=== PATIENT | male | born 1965 | race Caucasian/White ===

== ENCOUNTER 2021-10-09 13:01 | Emergency (ER) | payer OTHER, SELFPAY ==
--- NOTE | 2021-10-09 13:06 | ED.SKABFB ---
HPI - Skin/Abscess/Foreign Bdy General Chief complaint: Skin/Abscess/Foreign Body Stated complaint: rash Time Seen by Provider: 10/09/21 13:24 Source: patient Mode of arrival: ambulatory Limitations: no limitations History of Present Illness HPI narrative: Mr. Lara is a 55-year-old male patient presenting to the clinic today with complaints of rash on his hands, arms, legs, and torso x1 to 2 weeks. He reports that he has had a history of lichens planus in the past and is unsure if that is what is going on. He reports the rash is itchy and tingly Related Data Home Medications Medication Instructions Recorded Confirmed hydrochlorothiazide 25 mg tablet 25 mg PO DAILY 10/09/21 10/09/21 losartan 50 mg tablet 50 mg PO DAILY 10/09/21 10/09/21 Allergies Allergy/AdvReac Type Severity Reaction Status Date / Time codeine AdvReac Hallucinati Verified 10/09/21 13:22 ng Review of Systems Review of Systems: Pertinent positives per HPI. Patient denies any fever, chills, headache, visual changes, dizziness, cough, runny nose, sore throat, shortness of breath, chest pain, palpitations, nausea, vomiting, diarrhea, constipation, abdominal pain, or any urinary issues. PMFSH Social History Social History Smoking status: Never smoker Alcohol intake: never Gender identity (if verbalized by the patient): Male Comments At the time of my signature, I reviewed and agree with the nursing past medical, surgical, social, and family history. There is no relevant family history pertinent to the patient complaint. Exam Narrative: General: Well-developed, well nourished, in no apparent distress Head: Normocephalic, atraumatic. Cardio: Regular rate and rhythm, s1 and s2 normal, no murmur appreciated. Resp: Clear to auscultation bilaterally, no rhonchi, rales, wheezing or rubs. Integumentary: [place], warm, and dry, intact without lesion, blotchy rashes to the palm of his hands with red, raised blisterlike lesions to the forearms and chest suspicious for dermatitis. Course Course Emergency Course: Portions of this record may have been created with voice recognition software. Level of Care: Express Care Visit Vital Signs Vital signs: Vital signs reviewed MDM - Skin/Abscess/Foreign Bdy MDM Narrative Medical decision making narrative: At the time of visit patient is resting comfortably on the exam table. I suspect that the patient has lichens planus as well as dermatitis. I will give him a prescription for some Vistaril and some prednisone to treat his symptoms. Supportive measures were discussed with the patient he voiced understanding of discharge instructions and agrees to the treatment plan. Differential Diagnosis Differential diagnosis: Likely abscess of skin or subcutaneous tissue, dermatophytosis, cellulitis, eczema, insect bites and contact dermatitis Discharge Plan Discharge Clinical Impression: Lichen planus, Dermatitis Patient Disposition: Home, Self-Care Condition: Stable Instructions: Antibiotic Form, Acute Rash (ED), Dermatitis (ED) Additional Instructions: Avoid scratching Avoid taking hot showers May take Vistaril and prednisone as prescribed If symptoms persist in 3 to 4 days follow-up with your PCP as you may need referral to dermatology Prescriptions: New prednisone 20 mg tablet 40 mg PO DAILY 5 Days Qty: 10 0RF hydroxyzine pamoate [Vistaril] 25 mg capsule 25 mg PO Q6H PRN (Reason: itching) 7 Days Qty: 28 1RF No Action losartan 50 mg tablet 50 mg PO DAILY hydrochlorothiazide 25 mg tablet 25 mg PO DAILY Follow-up/Referrals: UNKNOWN,DOCTOR [Primary Care Provider] - Time of Disposition: 13:25 Quality NIHSS Nursing Documentation ED NIHSS nursing documentation: reviewed/agree
[2021-10-09 13:20] VITALS: BP 180/107; PULSE 75; RESP 18; TEMP 36.6; O2SAT 100
== END 2021-10-09 13:40 | disposition home or self-care (01) ==
PROVIDERS: Emergency Provider Nurse Practitioner Family
DX: L43.9 Lichen planus, unspecified (principal); L30.9 Dermatitis, unspecified; I10 Essential (primary) hypertension
CPT/HCPCS: 99213; G0463

== ENCOUNTER 2024-03-17 16:02 | Emergency (ER) | payer OTHER, SELFPAY ==
[2024-03-17 16:21] VITALS: BP 178/94; PULSE 86; RESP 16; TEMP 36.8; O2SAT 99
[2024-03-17 16:32] LABS: EDUAAPPEAR Clear; EDUABILI Negative (Negative); EDUABLOOD Negative (Negative); EDUACOLOR1 Yellow; EDUAGLUCOSE Negative (Negative); EDUAKETONE Negative (Negative); EDUALEUKO Trace (Negative); EDUANITRATE Negative (Negative); EDUAPROTEIN Negative (Negative); EDUAUROBILI 0.2
--- NOTE | 2024-03-17 16:51 | ED.MALEGU ---
HPI - Male Genitourinary General Chief complaint: Urogenital-Male Stated complaint: UTI Time Seen by Provider: 03/17/24 16:42 Source: patient and RN notes reviewed Mode of arrival: ambulatory Limitations: no limitations History of Present Illness HPI Narrative: Patient presents today complaining left-sided scrotal pain, bladder fullness, and occasional dysuria x1 month. He complains of increased scrotal pain with standing, but at rest he rates it 4-5/10. In June of 2023 he had very similar symptoms and was diagnosed with a hydrocele and scrotal nodule by Urology. At that time he opted not to have surgery and was treated with a course of Bactrim and tramadol for pain. Since that time, his urologist has . He has an appointment with a new urologist in 10 days and that office has instructed him to be evaluated for possible UTI. He denies any additional symptoms to include nausea or vomiting, fever, back pain. Related Data Home Medications ?Medication ?Instructions ?Recorded ?Confirmed ?Last Taken ?Type hydrochlorothiazide 25 mg tablet 25 mg PO DAILY 10/09/21 10/09/21 Unknown History chlorthalidone 25 mg tablet mg 03/17/24 Unknown History Allergies Allergy/AdvReac Type Severity Reaction Status Date / Time codeine AdvReac Hallucinati Verified 03/17/24 16:22 ng Review of Systems Review of Systems: CONSTITUTIONAL: Denies body aches, fever, chills, or sweats. EYES: Denies visual changes, redness, or discharge. ENT: Denies rhinorrhea, congestion, sore throat, or otalgia. CARDIOVASCULAR: Denies chest pain, palpitations, or edema. RESPIRATORY: Denies cough or dyspnea. GASTROINTESTINAL: Denies abdominal pain, nausea, vomiting, or diarrhea. GENITOURINARY: Bladder fullness, occasional dysuria, left scrotal pain SKIN: Denies rash, itching, or wounds. MUSCULOSKELETAL: Denies back pain, joint pain, or myalgia. NEUROLOGIC: Denies headache, numbness, tingling, or weakness. PSYCH: Denies depression or anxiety. [facility] Social History Social History Smoking status: Never smoker Alcohol intake: never Gender identity (if verbalized by the patient): Male Comments At time of signature, I have reviewed and agree with nursing past medical, surgical, social and family history unless otherwise noted. Please see nursing chart for further information. There is no relevant family history pertinent to the presenting complaint Exam Narrative: GENERAL: Well-appearing, well-nourished, and in no acute distress. HEAD: Normocephalic, atraumatic. EYES: EOMI. No redness or drainage. Conjunctivae normal. ENT: Mucous membranes pink and moist. NECK: Normal AROM. CHEST: No respiratory distress. : Exam deferred EXTREMITIES: Normal range of motion. No edema. SKIN: Warm, dry, no rash. Capillary refill normal. Normal skin turgor. NEURO: No focal deficits. Alert and oriented x3. Gait steady. PSYCH: Normal affect. No signs of depression or anxiety. Course Course Level of Care: Express Care Visit Vital Signs Vital signs: Vital Signs Temperature 98.3 F 03/17/24 16:21 Pulse Rate 86 03/17/24 16:21 Respiratory Rate 16 03/17/24 16:21 Blood Pressure 178/94 H 03/17/24 16:21 Pulse Oximetry 99 03/17/24 16:21 Temperature 98.3 F 03/17/24 16:21 Pulse Rate 86 03/17/24 16:21 Respiratory Rate 16 03/17/24 16:21 Blood Pressure 178/94 H 03/17/24 16:21 Pulse Oximetry 99 03/17/24 16:21 Reviewed MDM - Male Genitourinary MDM Narrative Medical decision making narrative: Patient's urinalysis is not consistent with infection today. Since patient's symptoms are consistent with his previous hydrocele/nodule symptoms, will treat him with some Bactrim and tramadol as his previous serologies has done, while he is waiting on an appointment with his new urologist. Differential Diagnosis Differential diagnosis: Likely urinary tract infection, epididymitis and other (Hydrocele) Lab Data Attestation: I reviewed the patient's lab results. Labs: Lab Results 03/17/24 Range/Units 16:28 POC Urine Color Yellow POC Urine Clarity Clear POC Urine pH 7.0 POC Ur Specif [place] 1.020 POC Urine Protein Negative (Negative) POC Ur Glucose (UA) Negative (Negative) POC Urine Ketones Negative (Negative) POC Urine Blood Negative (Negative) POC Urine Nitrite Negative (Negative) POC Urine Bilirubin Negative (Negative) POC Urine Urobilinogen 0.2 POC U Leukocyte Esteras Trace (Negative) Critical Care Time Critical Care Time Critical Care Time: No Discharge Plan Discharge Clinical Impression: Pain in scrotum Patient Disposition: Home, Self-Care Condition: Stable Additional Instructions: Please take both medications as prescribed. Do not drive within 6 hours of takin the Tramadol as it can make you drowsy. Follow up with your new urologist as scheduled. Go to the ER immediately if symptoms worsen to include worsening pain, abdominal pain, nausea or vomiting, fever. Your blood pressure was elevated above 120/80 today at Urgent Care. This puts you above the threshold for follow up. Please schedule a followup visit with your personal physician as soon as possible, for further evaluation and treatment. Even blood pressure exceeding 120/80 may indicate pre-hypertension. Patient Language: Citizen [place] Prescriptions: New sulfamethoxazole-trimethoprim [Bactrim DS] 800-160 mg tablet 1 tablet PO Q12H 7 Days Qty: 14 0RF tramadol 50 mg tablet 50 mg PO Q8H PRN (Reason: pain) Qty: 15 0RF No Action chlorthalidone 25 mg tablet hydrochlorothiazide 25 mg tablet 25 mg PO DAILY Follow-up/Referrals: PHYSICIAN,[employer] [Primary Care Provider] - Time of Disposition: 16:56
== END 2024-03-17 16:58 | disposition home or self-care (01) ==
PROVIDERS: Emergency Provider Nurse Practitioner
DX: N50.82 Scrotal pain (principal); I10 Essential (primary) hypertension; L43.9 Lichen planus, unspecified
CPT/HCPCS: 81003; 99213; G0463